=== PATIENT | female | born 1990 | race Caucasian/White ===

== ENCOUNTER 2021-06-07 03:35 | Emergency (ER) | payer BC ==
[~2021-06-07] VITALS: Ht 172.7 cm; Wt 102.2 kg
[2021-06-07 03:39] VITALS: BP 152/122
[2021-06-07] MEDS ORDERED: LIDO20SO16 PO (04:32)
[2021-06-07] MEDS ORDERED: LORazepam 0.5 MG tablet PO ONE (04:45)
== END 2021-06-07 05:05 | disposition home or self-care (01) ==
LOC: ER 03:36
DX: J02.9 Acute pharyngitis, unspecified (principal)
CPT/HCPCS: 87081; 87880; 99283